=== PATIENT | female | born 1995 | race Caucasian/White ===

== ENCOUNTER 2016-11-28 17:33 | Emergency (ER) | payer OTHER ==
[~2016-11-28] VITALS: Ht 160 cm; Wt 62.1 kg
[~2016-11-28 17:33] MED LIST: PEDICHW53 PO
[2016-11-28 17:36] VITALS: Ht 160 cm; Wt 62.1 kg
[2016-11-28] MEDS ORDERED: ONDANSETRON 8 MG/54 ML D5W IV STA (18:22)
[2016-11-28] MEDS ORDERED: SODIUM CHLORIDE 0.9% 1000ML 1,000 ML IV STA (18:22)
[2016-11-28] MEDS ORDERED: MoRPHine SULFATE 4 MG/ML 1 ML CARP\\VIAL IV STA (18:25)
[2016-11-28 18:34] LABS: BASO % 0.4 %; BASO ABS # 0.04 K/uL (0-0.2); COMPLETE YES; EOS % 1.1 %; HEMATOCRIT 42.1 % (37-47); IG% 0.1 %; LYMPH % 30.5 %; LYMPH ABS # 2.92 K/uL (1.2-3.4); MEAN CELL VOLUME 85.6 fL (80-100); MEAN CORPUSCULAR HEMOGLOBIN 29.9 pg (25-34); MEAN CORPUSCULAR HGB CONC 34.9 g/dl (32-36); MEAN PLATELET VOLUME 10.3 fL (7.4-10.4); MONO % 4.8 %; NEUT % 63.1 %; PLATELET COUNT 329 K/uL (130-400); RED BLOOD COUNT 4.92 M/uL (4.2-5.4); WHITE BLOOD COUNT 9.58 K/uL (4.8-10.8)
[2016-11-28 18:41] LABS: ALT/SGPT 19 U/L (12-78); AST/SGOT 5 U/L (15-37); BLOOD UREA NITROGEN 11 mg/dl (7-18); BUN/CREATININE RATIO 10.6 (10-20); CALCIUM 9.2 mg/dl (8.5-10.1); CARBON DIOXIDE 27 mmol/L (21-32); CHLORIDE 106 mmol/L (98-107); GLUCOSE 85 mg/dl (70-99); POTASSIUM 3.5 mmol/L (3.5-5.1); SODIUM 142 mmol/L (136-145)
[2016-11-28 18:44] LABS: ALKALINE PHOSPHATASE 62 U/L (45-117)
--- NOTE | 2016-11-28 19:07 | DIAGNOSTIC IMAGING REPORT ---
PA CHEST RADIOGRAPH AND UPRIGHT AND SUPINE AP RADIOGRAPHS OF THE ABDOMEN CLINICAL HISTORY: Abdominal pain. COMPARISON STUDY: No previous studies for comparison. FINDINGS: Lung volumes are normal. Lungs are clear. There is no pneumothorax or pleural effusion. Cardiac size is normal. Mediastinal contours are normal. There is no evidence of pulmonary edema. There is no free air. The bowel gas pattern is normal. No calcifications are identified. Visualized skeletal structures are unremarkable. IMPRESSION: 1. No free air or evidence of bowel obstruction. 2. No acute cardiopulmonary findings. Electronically signed by: Ronal Velazquez M.D. 11/28/2016 7:05 PM Dictated Date/Time: 11/28/2016 7:05 PM
[2016-11-28 19:10] LABS: PREG INTERNAL NEGATIVE QC NEG CLEAR BACKGROUND; PREG INTERNAL POSITIVE QC POS CONTROL LINE
[2016-11-28 20:21] LABS: URINE APPEARANCE CLOUDY (CLEAR); URINE BILIRUBIN NEG (NEG); URINE COLOR YELLOW; URINE EPITHELIAL CELL AUTO >30 /lpf (0-5); URINE NITRITE POS (NEG); URINE PH 6.5 (4.5-7.5); URINE SPECIFIC GRAVITY 1.009 (1.000-1.030); UROBILINOGEN NEG (NEG)
[2016-11-28 20:24] LABS: MANUAL MICROSCOPIC REQUIRED? NO; REVIEW REQ? NO
[2016-11-28] MEDS ORDERED: OPTIRAY 320 IV PRN (20:30)
[2016-11-28] MEDS ORDERED: SODIUM CHLORIDE 0.9% 1000ML 1,000 ML IV ONE (20:30)
--- NOTE | 2016-11-28 21:16 | DIAGNOSTIC IMAGING REPORT ---
CT OF THE ABDOMEN AND PELVIS WITH CONTRAST CLINICAL HISTORY: Diffuse abdominal pain, nausea and vomiting COMPARISON STUDY: Abdominal series performed November 28, 2016. TECHNIQUE: Following IV administration of 116 mL of Optiray-320, axial images of the abdomen and pelvis were obtained from the lung bases to the proximal femurs. Images were reviewed in the axial, sagittal, and coronal planes. IV contrast was administered without complication. CT DOSE: 297.27 mGy.cm FINDINGS: Lung bases are clear. The liver, spleen, adrenal glands, kidneys and pancreas are normal. There is no peripancreatic or pericholecystic infiltration. There is no biliary or pancreatic ductal dilatation. There is no hydronephrosis. The caliber and wall thickness of small and large bowel are normal. The appendix is normal. Note is made of a 2.6 cm left ovarian cyst. The ovaries are not enlarged. There is no free fluid or abscess. No enlarged lymph nodes are present. Skeletal structures are unremarkable. IMPRESSION: 1. No acute process within the abdomen or pelvis. Normal appendix. 2. 2.6 cm left ovarian cyst. Electronically signed by: Ronal Velazquez M.D. 11/28/2016 9:14 PM Dictated Date/Time: 11/28/2016 9:09 PM
[2016-11-28] MEDS ORDERED: ONDA4TAB46 PO (22:11)
[2016-11-28] MEDS ORDERED: ONDANSETRON HOME PACK 4MG OD TAB PO ONE (22:15)
[2016-11-28 22:26] VITALS: BP 106/63; PULSE 98; TEMP 36.9; O2SAT 96
--- NOTE | 2016-11-29 00:34 | EMERGENCY ROOM VISIT NOTE ---
ED Visit Note First contact with patient: 17:42 Chief Complaint: Abdominal pain and vomiting. History of Present Illness: Ms. Molina is a 21 year-old white female who ambulates into the ED accompanied by her complaining of diffuse abdominal pain and nausea/vomiting. Historically patient reports no significant gastrointestinal or abdominal diseases/surgeries. Patient reports a acute onset of severe diffuse abdominal pain that started approximately 2 weeks ago shortly after waking. Since that time her pain has been constant. She describes her pain as a sharp sensation. She is not able to localize it was does report its slightly more prominent throughout the lower abdomen in the upper abdomen. She currently rates her discomfort /10. Her pain is nonradiating. She has not identified any aggravating or alleviating factors related to the pain. She has not taken any medications for pain prior to arrival at the hospital. Additionally she reports since the first day of her pain about 30 minutes after she eats any food or drinks any liquids except for Mountain Dew she becomes nauseated and has multiple episodes of vomiting. Because she does not like to vomit she reports she does not eat until the following day. Each day she reports she has had a similar pattern of ongoing pain, leaning, nausea and vomiting. Patient denies fevers, chills, sweats, skin eruptions, skin color changes, upper respiratory tract symptoms, shortness of breath, chest pain, hematemesis, coffee ground emesis, diarrhea, constipation, rectal bleeding, black/tarry stools, urinary symptoms, hematuria, vaginal bleeding, vaginal discharge, back/ flank pain. Review of Systems: As noted above in history of present illness. All body systems were reviewed and found to be negative as noted above. Past Medical History: Patient denies. Current Medications: Patient denies. Allergies to Medications: Patient denies. Social History: Patient is not employed; she feels safe in her home environment ; she admits to tobacco use and denies alcohol use. Physical Examination: Vital Signs: Date Time Temp Pulse Resp B/P Pulse Ox O2 Delivery O2 Flow Rate FiO2 11/28/16 22:26 36.9 98 23 106/63 96 11/28/16 22:03 98 23 106/63 96 Room Air 11/28/16 21:33 73 17 11/28/16 20:50 66 18 104/58 11/28/16 20:49 104/58 11/28/16 19:55 69 18 82/52 97 Room Air 11/28/16 19:37 83/52 11/28/16 18:35 74 18 102/62 97 Room Air 72 104/67 68 97/61 11/28/16 17:36 36.9 92 18 114/71 97 Room Air GENERAL: 21-year-old female in mild distress due to pain, nontoxic-appearing, afebrile and hemodynamically stable. NEUROLOGICAL: Awake, alert and oriented to person, place and time. Answering questions appropriately and following commands. Normal gait. Good hand eye coordination. SKIN: Warm, dry and pink. No soft tissue eruptions or trauma noted. HEENT: Atraumatic and normocephalic. PERRLA. Sclera white and conjunctiva pink. Oral cavity moist and pink. Pharynx is nonerythematous or edematous. Speech normal. No lymphadenopathy. Trachea midline. No jugular venous distention. BACK: No tenderness over the bony spine. No CVA tenderness. THORAX: Lungs sounds are clear to auscultation and equal bilaterally with symmetrical chest wall. No wheezing, rales or rhonchi. No crepitus, tenderness , subcutaneous air or deformities noted. HEART: Regular rate and rhythm. No gallops, rubs or murmurs are appreciated. ABDOMEN: Flat and soft with diffuse tenderness throughout her abdomen excluding the suprapubic area. Positive bowel sounds in all quadrants. No guarding, rigidity or organomegaly. EXTREMITIES: Moves all extremities well on command and with purpose. All distal neurovascular statuses are intact and equal bilaterally. ED Course: Patient is assessed as noted above. Laboratory Testing: Test 11/28/16 18:00 11/28/16 18:42 11/28/16 20:00 Range/Units White Blood Count 9.58 4.8-10.8 K/uL Red Blood Count 4.92 4.2-5.4 M/uL Hemoglobin 14.7 12.0-16.0 g/dL Hematocrit 42.1 37-47 % Mean Corpuscular Volume 85.6 80-100 fL Mean Corpuscular Hemoglobin 29.9 25-34 pg Mean Corpuscular Hemoglobin Concent 34.9 32-36 g/dl Platelet Count 329 130-400 K/uL Mean Platelet Volume 10.3 7.4-10.4 fL Neutrophils (%) (Auto) 63.1 % Lymphocytes (%) (Auto) 30.5 % Monocytes (%) (Auto) 4.8 % Eosinophils (%) (Auto) 1.1 % Basophils (%) (Auto) 0.4 % Neutrophils # (Auto) 6.04 1.4-6.5 K/uL Lymphocytes # (Auto) 2.92 1.2-3.4 K/uL Monocytes # (Auto) 0.46 0.11-0.59 K/uL Eosinophils # (Auto) 0.11 0-0.5 K/uL Basophils # (Auto) 0.04 0-0.2 K/uL RDW Standard Deviation 36.2 36.4-46.3 fL RDW Coefficient of Variation 11.6 11.5-14.5 % Immature Granulocyte % (Auto) 0.1 % Immature Granulocyte # (Auto) 0.01 0.00-0.02 K/uL Sodium Level 142 136-145 mmol/L Potassium Level 3.5 3.5-5.1 mmol/L Chloride Level 106 98-107 mmol/L Carbon Dioxide Level 27 21-32 mmol/L Anion Gap 9.0 3-11 mmol/L Blood Urea Nitrogen 11 7-18 mg/dl Creatinine 1.00 0.60-1.20 mg/dl Est Creatinine Clear Calc Drug Dose 74.2 ml/min Estimated GFR () 93.9 Estimated GFR (Non- 81.0 BUN/Creatinine Ratio 10.6 10-20 Random Glucose 85 70-99 mg/dl Calcium Level 9.2 8.5-10.1 mg/dl Total Bilirubin 0.2 0.2-1 mg/dl Direct Bilirubin < 0.1 0-0.2 mg/dl Aspartate Amino Transf (AST/SGOT) 5 15-37 U/L Alanine Aminotransferase (ALT/SGPT) 19 12-78 U/L Alkaline Phosphatase 62 45-117 U/L Total Protein 7.5 6.4-8.2 gm/dl Albumin 4.2 3.4-5.0 gm/dl Lipase 170 73-393 U/L Human Chorionic Gonadotropin, Qual NEG NEG Bedside Troponin I 0.000 0-0.045 ng/ml Urine Color YELLOW Urine Appearance CLOUDY CLEAR Urine pH 6.5 4.5-7.5 Urine Specific [place] 1.009 1.000-1.030 Urine Protein NEG NEG Urine Glucose (UA) NEG NEG Urine Ketones NEG NEG Urine Occult Blood NEG NEG Urine Nitrite POS NEG Urine Bilirubin NEG NEG Urine Urobilinogen NEG NEG Urine Leukocyte Esterase MODERATE NEG Urine WBC (Auto) >30 0-5 /hpf Urine RBC (Auto) 0-4 0-4 /hpf Urine Hyaline Casts (Auto) 1-5 0-5 /lpf Urine Epithelial Cells (Auto) >30 0-5 /lpf Urine Bacteria (Auto) 4+ NEG Urine Culture: Pending. Acute Abdominal X-Ray Series: Were read by myself and the radiologist and shows no acute infiltrates, effusions or pneumothorax. Normal heart silhouette and bony anatomy. Abdominal component shows no signs of free air and, nonobstructive bowel gas pattern. IV Contrast Abdominal/Pelvic CT: Was reviewed by myself and read by the radiologist showing no acute process within the abdomen or pelvis. Normal- appearing liver, spleen, adrenal glands, kidneys and pancreas. No acute peripancreatic or pericholecystic infiltration. No hydronephrosis. Normal caliber and wall thickness of the small and large bowel, normal-appearing appendix. 2.6 cm left ovarian cyst. No free fluid or abscess is. No enlarged lymph nodes. Skeletal structures are unremarkable. Patient was hydrated with normal saline and she received 4 mg of morphine IV for pain and 8 mg of Zofran IV for nausea. Patient was reassessed multiple times during her stay in the emergency department. Patient's case was reviewed with Dr. Leyva; we agreed on diagnostic approach, treatment, disposition and plan. Patient was trialed on juice, gurvinder crackers and peanut butter prior to discharge; after eating she had no return of nausea/vomiting. Patient was educated about tonight's findings and instructed on her treatment plan; she verbalizes understanding and agreement with this plan. Clinical Impression: Acute abdominal pain. Nausea/vomiting. Decision-Making: Initially my differential diagnosis I considered bowel obstruction, gastroenteritis, perforated viscus, abdominal abscess and other causes. Disposition: Patient discharged home in stable condition accompanied by her ; prior to departure she was reassessed and subjectively reported that she was pain-free and had no return of nausea/vomiting. Plan: Patient was encouraged to use 650 mg of acetaminophen every 6 hours as needed for pain. Patient was prescribed Zofran and instructed on achieves. Patient was encouraged use a bland diet for 48 hours and then return to her normal diet and avoid stomach irritants. Patient was encouraged to follow-up with her family physician for recheck and if she was not able to follow-up with family physician return to the emergency department. Patient was encouraged to return to the ED also she has worsening/uncontrolled pain, worsening vomiting, bloody vomitus, bloody stool, fevers or any new/ concerning symptoms.
== END 2016-11-28 22:27 | disposition home or self-care (01) ==
LOC: C.EDB 17:34 → C.EDA 22:27
DX: R10.9 Unspecified abdominal pain (principal); R11.2 Nausea with vomiting, unspecified; F17.210 Nicotine dependence, cigarettes, uncomplicated

== ENCOUNTER 2017-02-24 19:16 | Emergency (ER) | payer OTHER ==
[~2017-02-24] VITALS: Ht 160 cm; Wt 61.1 kg
[~2017-02-24 19:16] MED LIST changes: +ONDA4TAB46 PO; -PEDICHW53 PO
[2017-02-24 19:33] VITALS: TEMP 36.7; Ht 160 cm; Wt 61.1 kg
[2017-02-24] MEDS ORDERED: SODIUM CHLORIDE 0.9% 1000ML 1,000 ML IV STA (20:09)
[2017-02-24] MEDS ORDERED: SODIUM CHLORIDE 0.9% 1000ML 1,000 ML IV ONE (20:09)
[2017-02-24] MEDS ORDERED: KETOROLAC TROMETHAMINE 30 MG/ML VIAL IV STA (20:09)
--- NOTE | 2017-02-24 20:10 | EMERGENCY ROOM VISIT NOTE ---
History Report prepared by Torin: Shyam Terry Under the Supervision of: Dr. Garrett Rachel M.D. First contact with patient: 20:02 Chief Complaint: CHEST PAIN Stated Complaint: CHEST PRESSURE,SHAKING Nursing Triage Summary: c/o " chest tightness and arm tingling." was at the movies. History of Present Illness The patient is a 21 year old female who presents to the Emergency Room with complaints of persistent substernal chest that started approximately 35 minutes [employer]. The patient describes a pressure sensation. There are no worsening or relieving factors. The patient also complains of shortness of breath. The patient notes that she has been intermittently tachycardic and experiencing bilateral arm tingling / numbness. Her notes that she was breathing fast. She has never had pain like this before. She denies any recent trauma or strenuous activity. She denies pain or swelling of the legs. She cannot role out the possibility of . LNMP was two weeks ago. She has a two year old child. P:1. The patient is a smoker. She is not on control. Source of History: patient, spouse/significant other Onset: 35 minutes [employer] Position: chest Quality: pressure Timing: other (persistent) Associated Symptoms: + SOB, + numbness Review of Systems See HPI for pertinent positives & negatives. A total of 10 systems reviewed and were otherwise negative. Past Medical & Surgical Medical Problems: (1) Broken wrist (2) Concussion (3) Urinary problem Old medical records were reviewed. Nurse's notes were reviewed and I agree with. Family History No pertinent family history Social History Smoking Status: Current Some Day Smoker Alcohol Use: none Marital Status: in relationship Housing Status: lives with significant other Occupation Status: unemployed Current/Historical Medications No Active Prescriptions or Reported Meds Allergies Coded Allergies: No Known Allergies (Unverified , 11/28/16) Physical Exam Vital Signs Date Time Temp Pulse Resp B/P Pulse Ox O2 Delivery O2 Flow Rate FiO2 02/24/17 21:46 85 23 102/67 02/24/17 21:16 79 18 100 02/24/17 20:46 79 24 02/24/17 20:16 79 24 99 02/24/17 20:05 80 02/24/17 19:33 36.7 67 18 108/62 93 Room Air Physical Exam General: Non ill appearing young female in no acute distress, breathing comfortably on room air. Normal speech HEENT: Normal cephalic atraumatic. Pupils are equal round and reactive to light. Extraocular movements are intact. Oropharynx is pink with moist mucous membranes. No swelling of the mouth lips or tongue. Neck: Supple with a midline trachea. No meningeal signs or stiffness, no JVD or bruits. No Stridor. Chest: Clear to auscultation bilaterally. No wheezes or rhonchi. No increased work of breathing. Tender to palpation over the anterior chest wall near the lower sternum. Heart: regular rate and rhythm. Abdomen: Soft nontender, nondistended without rebound guarding or rigidity. Extremities: No cyanosis clubbing or edema. No calf tenderness or assymetry Spine/Back. Non tender to palpation. No CVA tenderness Skin: Good turgor without rashes. Neurologic exam: Cranial nerves two through 12 are intact. Motor and sensation are intact and symmetrical throughout. Medical Decision & Procedures ER Provider Diagnostic Interpretation: X-ray results as stated below per interpretation by me and the radiologist: CHEST ONE VIEW PORTABLE CLINICAL HISTORY: Atypical chest pain COMPARISON STUDY: 11/28/2016 FINDINGS: The cardiac and mediastinal contours are normal. There is no evidence of focal pulmonary consolidation. There is no evidence of failure. No pleural effusions are visualized.[ IMPRESSION: No active disease in the chest. Electronically signed by: Chadd Erwin M.D. 02/24/2017 8:48 PM Dictated Date/Time: 02/24/2017 8:48 PM Laboratory Results 02/24/17 20:31 Red Blood Count 4.49, Mean Corpuscular Volume 88.2, Mean Corpuscular Hemoglobin 30.3, Mean Corpuscular Hemoglobin Concent 34.3, Mean Platelet Volume 9.6, Neutrophils (%) (Auto) 78.9, Lymphocytes (%) (Auto) 14.9, Monocytes (%) (Auto) 5.0, Eosinophils (%) (Auto) 0.9, Basophils (%) (Auto) 0.2, Neutrophils # (Auto) 11.03, Lymphocytes # (Auto) 2.09, Monocytes # (Auto) 0.70, Eosinophils # (Auto) 0.13, Basophils # (Auto) 0.03 02/24/17 20:31 Test 02/24/17 20:31 02/24/17 20:34 White Blood Count 14.00 K/uL (4.8-10.8) Red Blood Count 4.49 M/uL (4.2-5.4) Hemoglobin 13.6 g/dL (12.0-16.0) Hematocrit 39.6 % (37-47) Mean Corpuscular Volume 88.2 fL (80-100) Mean Corpuscular Hemoglobin 30.3 pg (25-34) Mean Corpuscular Hemoglobin Concent 34.3 g/dl (32-36) Platelet Count 299 K/uL (130-400) Mean Platelet Volume 9.6 fL (7.4-10.4) Neutrophils (%) (Auto) 78.9 % Lymphocytes (%) (Auto) 14.9 % Monocytes (%) (Auto) 5.0 % Eosinophils (%) (Auto) 0.9 % Basophils (%) (Auto) 0.2 % Neutrophils # (Auto) 11.03 K/uL (1.4-6.5) Lymphocytes # (Auto) 2.09 K/uL (1.2-3.4) Monocytes # (Auto) 0.70 K/uL (0.11-0.59) Eosinophils # (Auto) 0.13 K/uL (0-0.5) Basophils # (Auto) 0.03 K/uL (0-0.2) RDW Standard Deviation 39.0 fL (36.4-46.3) RDW Coefficient of Variation 12.1 % (11.5-14.5) Immature Granulocyte % (Auto) 0.1 % Immature Granulocyte # (Auto) 0.02 K/uL (0.00-0.02) Anion Gap 7.0 mmol/L (3-11) Est Creatinine Clear Calc Drug Dose 78.1 ml/min Estimated GFR () 99.9 Estimated GFR (Non- 86.2 BUN/Creatinine Ratio 9.2 (10-20) Calcium Level 9.2 mg/dl (8.5-10.1) Total Bilirubin 0.3 mg/dl (0.2-1) Direct Bilirubin < 0.1 mg/dl (0-0.2) Aspartate Amino Transf (AST/SGOT) 39 U/L (15-37) Alanine Aminotransferase (ALT/SGPT) 24 U/L (12-78) Alkaline Phosphatase 75 U/L (45-117) Total Creatine Kinase 54 U/L (26-192) Creatine Kinase MB < 0.5 ng/ml (0.5-3.6) Creatine Kinase MB Ratio (0-3.0) Total Protein 7.0 gm/dl (6.4-8.2) Albumin 3.9 gm/dl (3.4-5.0) Lipase 150 U/L (73-393) Human Chorionic Gonadotropin, Qual NEG (NEG) Bedside D-Dimer 103 ng/mlFEU (0-450) Bedside Troponin I 0.000 ng/ml (0-0.045) Laboratory studies as stated above per my review. Medications Administered Medications (Trade) Dose Ordered Sig/Genny Route Start Time Stop Time Status Last Admin Dose Admin Sodium Chloride 1,000 ml @ 999 mls/hr Q1H1M STAT IV 02/24/17 20:09 02/24/17 21:09 DC 02/24/17 20:09 999 MLS/HR Sodium Chloride (Nss 1000ml) 1,000 ml @ 150 mls/hr Q6H40M ONCE IV 02/24/17 20:09 02/24/17 23:41 DC 02/24/17 20:09 150 MLS/HR Ketorolac Tromethamine (Toradol Inj) 30 mg NOW STAT IV 02/24/17 20:09 02/24/17 20:10 DC 02/24/17 20:44 30 MG ECG Indication: chest pain Rate (beats per minute): 69 Rhythm: normal sinus Findings: no acute ischemic change, no ectopy, other (shortened [place] interval) ED Course 2004: Past medical records reviewed. The patient was evaluated in room B5, and a complete history and physical examination were performed. 2009: Toradol 30 mg IV, NSS 1000 ml @ 150 mls/hr, NSS 1000 ml @ 999 mls/hr. 2140: Reassessed the patient. Discussed the findings with her. She verbalized understanding and agreement. The patient is ready for discharge. Medical Decision Differential diagnosis includes musculoskeletal pain, cardiac disease, PE, pneumothorax, electrolyte or metabolic abnormality. This patient comes in as described above. She was placed in room B5. She is here for treatment and evaluation of chest pain. She is significantly reproducible along the lower sternum. She's had no trauma. EKG does not suggest acute coronary syndrome or significant arrhythmia. Chest x-ray is unremarkable. D-dimer is within normal limits and a low pretest probability and this makes PE highly unlikely. Her cardiac enzymes are not elevated. She' s had no acute electrolyte or metabolic abnormalities. She is not . She has nothing to suggest trauma. She was given IV Toradol and felt significant better. I think this most likely is costochondritis. She should return if : increasing pain, fever or chills, worsening of symptoms, any new problems concerns and use anti-inflammatory such as ibuprofen. She is happy with plan and discharged home. Follow-up with her doctor this week for recheck. Impression Primary Impression: Substernal precordial chest pain Additional Impression: Costochondritis Scribe Attestation The scribe's documentation has been prepared under my direction and personally reviewed by me in its entirety. I confirm that the note above accurately reflects all work, treatment, procedures, and medical decision making performed by me. Departure Information Dispostion Home / Self-Care Prescriptions No Active Prescriptions or Reported Meds Referrals No Doctor, Assigned (PCP) Forms HOME CARE DOCUMENTATION FORM, IMPORTANT VISIT INFORMATION Patient Instructions My [facility] Additional Instructions Rest Drink plenty of fluids Use Ibuprofen 400 mg every 6 hours as need. take with food REturn if: worsening of symptoms, increasing pain, fever, any new problems or concerns Follow-up with your doctor on Sunday for recheck Problem Qualifiers
[2017-02-24 20:42] LABS: BASO % 0.2 %; BASO ABS # 0.03 K/uL (0-0.2); COMPLETE YES; EOS % 0.9 %; HEMATOCRIT 39.6 % (37-47); IG% 0.1 %; LYMPH % 14.9 %; LYMPH ABS # 2.09 K/uL (1.2-3.4); MEAN CELL VOLUME 88.2 fL (80-100); MEAN CORPUSCULAR HEMOGLOBIN 30.3 pg (25-34); MEAN CORPUSCULAR HGB CONC 34.3 g/dl (32-36); MEAN PLATELET VOLUME 9.6 fL (7.4-10.4); NEUT % 78.9 %; PLATELET COUNT 299 K/uL (130-400); RED BLOOD COUNT 4.49 M/uL (4.2-5.4)
--- NOTE | 2017-02-24 20:50 | DIAGNOSTIC IMAGING REPORT ---
CHEST ONE VIEW PORTABLE CLINICAL HISTORY: Atypical chest pain COMPARISON STUDY: 11/28/2016 FINDINGS: The cardiac and mediastinal contours are normal. There is no evidence of focal pulmonary consolidation. There is no evidence of failure. No pleural effusions are visualized.[ IMPRESSION: No active disease in the chest. Electronically signed by: Chadd Erwin M.D. 02/24/2017 8:48 PM Dictated Date/Time: 02/24/2017 8:48 PM
[2017-02-24 21:01] LABS: ALT/SGPT 24 U/L (12-78); BLOOD UREA NITROGEN 9 mg/dl (7-18); BUN/CREATININE RATIO 9.2 (10-20); CARBON DIOXIDE 27 mmol/L (21-32); CHLORIDE 110 mmol/L (98-107); CREATININE 0.95 mg/dl (0.60-1.20); GLUCOSE 73 mg/dl (70-99); POTASSIUM 3.8 mmol/L (3.5-5.1); SODIUM 144 mmol/L (136-145)
[2017-02-24 21:06] LABS: ALKALINE PHOSPHATASE 75 U/L (45-117); AST/SGOT 39 U/L (15-37)
[2017-02-24 21:16] VITALS: O2SAT 100
[2017-02-24 21:37] LABS: PREG INTERNAL NEGATIVE QC NEG CLEAR BACKGROUND; PREG INTERNAL POSITIVE QC POS CONTROL LINE
[2017-02-24 21:46] VITALS: BP 102/67; PULSE 85
[2017-02-24 22:14] LABS: CALCIUM 9.2 mg/dl (8.5-10.1)
== END 2017-02-24 22:00 | disposition home or self-care (01) ==
LOC: C.EDB 19:18
DX: R07.2 Precordial pain (principal); M94.0 Chondrocostal junction syndrome [Tietze]; F17.210 Nicotine dependence, cigarettes, uncomplicated